=== PATIENT | female | born 1965 | race Caucasian/White ===

== ENCOUNTER → 2023-12-03 18:21 | Outpatient (REF) | payer BC, SELFPAY | LOC: WDC 18:21 | PROVIDERS: ATTENDING PHYSICIAN Obstetrics & Gynecology; FAMILY PHYSICIAN Family Medicine | DX: Z12.31 Encounter for screening mammogram for malignant neoplasm of breast (principal) | CPT/HCPCS: 77063; 77067 ==

== ENCOUNTER → 2023-12-10 08:10 | Outpatient (REF) | payer BC, SELFPAY | LOC: WDC 08:10 | PROVIDERS: ATTENDING PHYSICIAN Obstetrics & Gynecology; FAMILY PHYSICIAN Family Medicine | DX: R92.8 Other abnormal and inconclusive findings on diagnostic imaging of breast (principal) | CPT/HCPCS: 76642 ==

== ENCOUNTER → 2024-03-01 07:22 | Outpatient (REF) | payer BC, SELFPAY | LOC: RCS 07:22 | PROVIDERS: ATTENDING PHYSICIAN Internal Medicine Cardiovascular Disease; FAMILY PHYSICIAN Family Medicine | DX: R06.02 Shortness of breath (principal); E11.9 Type 2 diabetes mellitus without complications | CPT/HCPCS: 78452; 93017; A9500 ==

== ENCOUNTER → 2024-04-19 13:44 | Outpatient (REF) | payer BC, SELFPAY | LOC: RAD 13:44 | PROVIDERS: ATTENDING PHYSICIAN Obstetrics & Gynecology; FAMILY PHYSICIAN Family Medicine | DX: R87.619 Unspecified abnormal cytological findings in specimens from cervix uteri (principal) | CPT/HCPCS: 76856 ==

== ENCOUNTER 2024-05-10 06:32 | Day surgery (SDC) | payer BC, SELFPAY ==
[2024-05-07 09:10] VITALS: BMI 37.0
[2024-05-07 09:27] LABS: Blood Urea Nitrogen 17 mg/dl (7-17); Calcium 9.6 mg/dl (8.4-10.2); Carbon Dioxide 26 mmol/L (22-30); Chloride 99 mmol/L (98-107); Estimated Creatinine Clearance 106 ml/min; Glucose 138 mg/dl (70-99); Potassium 4.2 mmol/L (3.5-5.1); Sodium 140 mmol/L (135-145); eGFR > 60.00
[2024-05-10] VITALS (9 sets, daily range): BP systolic 87–116; BP diastolic 51–80; BMI 37.0
[2024-05-10 09:19] LABS: Glucose - Point of Care 130 mg/dl (70-99)
--- NOTE | 2024-05-10 10:24 | W.PN.UPDATE ---
Update Note
Progress Note Update
Patient aware I spoke to [employer]ICE/Onc regarding need for LEEP. He recommends proceeding with just the D&C secondary to colpo results and improvement in PAP. Pt agrees, consent amended. Pt aware may still additional procedures depending on outcome of
today's p[rocedure.
[2024-05-10 11:31] LABS: Glucose - Point of Care 127 mg/dl (70-99)
== END 2024-05-10 13:15 | disposition home or self-care (01) ==
LOC: SDS 06:32
PROVIDERS: ATTENDING PHYSICIAN Obstetrics & Gynecology; FAMILY PHYSICIAN Family Medicine
DX: N84.0 Polyp of corpus uteri (principal); N85.8 Other specified noninflammatory disorders of uterus; Z87.410 Personal history of cervical dysplasia
CPT/HCPCS: 58558; 88305; 36415; 80048; 82962

== ENCOUNTER → 2024-12-13 18:51 | Outpatient (REF) | payer BC, SELFPAY | LOC: WDC 18:51 | PROVIDERS: ATTENDING PHYSICIAN Obstetrics & Gynecology; FAMILY PHYSICIAN Family Medicine | DX: Z12.31 Encounter for screening mammogram for malignant neoplasm of breast (principal) | CPT/HCPCS: 77063; 77067 ==